=== PATIENT | female | born 1955 | race Two or more races ===

== ENCOUNTER 2018-01-08 07:06 | Day surgery (SDC) | payer OTHER ==
[2018-01-07] MEDS: LACTATED RINGER'S 1,000 ML IV (16:33)
[~2018-01-08 07:06] MED LIST: LIDOCAINE 2% (SDV) 5 ML INJ; LIDOCAINE 3.5% GEL TUBE OPER; PROPOFOL 200 MG INJ
[2018-01-08] MEDS ORDERED: EPINEPHrine 1 MG INJ (07:15)
[2018-01-08] MEDS: MOXIFLOXACIN 0.5% 3 ML OPH OPER (08:29)
[2018-01-08] MEDS: LIDOCAINE 3.5% GEL TUBE OPER (08:29)
[2018-01-08] MEDS: TROPICAMIDE 1% 3 ML OPH OPER (08:29)
[2018-01-08] MEDS: CYCLOPENTOLATE 2% 2 ML OPH OPER (08:29)
[2018-01-08] MEDS ORDERED: ALBUTEROL 0.083% (NEB) 2.5 MG/3 ML AMP HHN ×2 (08:30→11:30)
[2018-01-08] MEDS: PHENYLephrine 10% 5 ML OPH OPER (08:30)
[2018-01-08] MEDS ORDERED: LABETALOL HCL 20MG INJ IV ×2 (08:30→11:30)
[2018-01-08] MEDS ORDERED: ONDANSETRON 4 MG INJ IV ×2 (08:30→11:30)
[2018-01-08] MEDS ORDERED: ACETAMINOPHEN 500 MG TAB PO (08:30)
[2018-01-08] MEDS ORDERED: hydrALAzine 20 MG INJ IV ×2 (08:30→11:30)
[2018-01-08] MEDS ORDERED: ACETAMINOPHEN 325 MG TAB PO (08:30)
[2018-01-08] MEDS: TETRACAINE 0.5% 4 ML OPH OPER (08:30)
[2018-01-08] MEDS: BROMFENAC SODIUM 1.7 ML OPH DROP OPER (08:31)
[2018-01-08] MEDS ORDERED: LIDOCAINE 1%/EPI 30 ML INJ (09:16)
[2018-01-08] MEDS ORDERED: TETRACAINE 0.5% 4 ML OPH (09:17)
[2018-01-08] MEDS ORDERED: TOBRAMYCIN/DEXAMETH 3.5 GM OPH OINT (09:17)
[2018-01-08] MEDS ORDERED: DEXAMETHASONE 4 MG/ML 1 ML INJ (09:18)
[2018-01-08] MEDS ORDERED: GENTAMICIN 80 MG INJ (09:18)
[2018-01-08] MEDS ORDERED: MIDAZOLAM 1 MG/ML 2 ML INJ (09:44)
[2018-01-08] MEDS ORDERED: CEFAZOLIN 1 GM INJ (09:49)
[2018-01-08] MEDS ORDERED: TRYPAN BLUE 0.5 ML SYG IO (09:49)
[2018-01-08] MEDS: LIDOCAINE 1%/EPI 30 ML INJ INJ (10:05)
[2018-01-08] MEDS ORDERED: FENTAnyl 50 MCG/ML VIAL (10:09)
[2018-01-08] MEDS: DIPHENHYDRAMINE 50 MG INJ IV (11:25)
[2018-01-08] MEDS ORDERED: OXYCODONE/ACETAMINOPHEN (5/325) TAB PO (11:30)
[2018-01-08] MEDS ORDERED: EPHEDrine SULFATE 50 MG/5 ML SYG IV (11:30)
[2018-01-08] MEDS ORDERED: DIPHENHYDRAMINE 50 MG INJ IV (11:30)
[2018-01-08] MEDS ORDERED: FENTAnyl 50 MCG/ML VIAL IV (11:30)
[2018-01-08] MEDS ORDERED: ATROPINE 1 MG/10 ML SYRINGE IV (11:30)
[2018-01-08] MEDS ORDERED: morphine (1 MG/ML) 10ML SYRINGE IV (11:30)
[2018-01-08] MEDS ORDERED: HYDROmorphONE 1 MG/5 ML IV SYRINGE IV (11:40)
[2018-01-08] MEDS: HYDROmorphONE 1 MG/5 ML IV SYRINGE IV (11:42)
[2018-01-08] MEDS: OXYCODONE/ACETAMINOPHEN (5/325) TAB PO (12:22)
[2018-01-08] MEDS: ACETAZOLAMIDE 250 MG TAB PO (13:03)
== END 2018-01-08 13:22 | disposition home or self-care (01) ==
LOC: SDS 07:06
DX: H25.22 Age-related cataract, morgagnian type, left eye (principal); E78.5 Hyperlipidemia, unspecified; E03.9 Hypothyroidism, unspecified; I10 Essential (primary) hypertension
CPT/HCPCS: 66984

== ENCOUNTER 2018-02-24 10:24 | Day surgery (SDC) | payer OTHER ==
[~2018-02-24 10:24] MED LIST changes: +DEXAMETHASONE 4 MG/ML 5 ML INJ; +GLYCOPYRROLATE 0.4 MG INJ; -LIDOCAINE 2% (SDV) 5 ML INJ; -LIDOCAINE 3.5% GEL TUBE OPER; +NEOSTIGMINE 3 MG/3 ML SYRINGE; +SEVOFLURANE 15 MIN
[2018-02-24] MEDS: BROMFENAC SODIUM 1.7 ML OPH DROP OPER (11:17)
[2018-02-24] MEDS: CYCLOPENTOLATE 2% 2 ML OPH OPER (11:18)
[2018-02-24] MEDS: MOXIFLOXACIN 0.5% 3 ML OPH OPER (11:18)
[2018-02-24] MEDS: LIDOCAINE 3.5% GEL TUBE OPER (11:19)
[2018-02-24] MEDS: TETRACAINE 0.5% 4 ML OPH OPER (11:19)
[2018-02-24 11:47] LABS: ADD MAN DIFF? NO
[2018-02-24] MEDS ORDERED: FENTAnyl 50 MCG/ML VIAL (11:50)
[2018-02-24] MEDS ORDERED: MIDAZOLAM 1 MG/ML 2 ML INJ (11:50)
[2018-02-24 11:57] LABS: BASOPHIL # 0.1 10^3/ul (0.0-0.1); BASOPHILS % 0.7 % (0.0-2.0); EOSINOPHILS # 0.1 10^3/ul (0.0-0.5); EOSINOPHILS % 1.7 % (0.0-7.0); HEMATOCRIT 35.3 % (37.0-47.0); LYMPHOCYTES # 2.9 10^3/ul (0.8-2.9); LYMPHOCYTES % 41.3 % (15.0-51.0); MEAN CORPUSCULAR HEMOGLOBIN 29.8 pg (29.0-33.0); MEAN CORPUSCULAR VOLUME 87.6 fl (82.0-101.0); MEAN PLATELET VOLUME 10.2 fl (7.4-10.4); MONOCYTE # 0.5 10^3/ul (0.3-0.9); MONOCYTES % 7.3 % (0.0-11.0); NEUTROPHIL # 3.4 10^3/ul (1.6-7.5); NEUTROPHILS % 48.7 % (39.0-77.0); PLATELET COUNT 292 10^3/UL (140-415); RED BLOOD COUNT 4.03 10^6/ul (4.20-5.40); RED CELL DISTRIBUTION WIDTH 12.5 % (11.5-14.5)
[2018-02-24 12:17] LABS: INR 0.99; PROTIME 13.2 Sec (11.9-14.9)
[2018-02-24 12:18] LABS: PARTIAL THROMBOPLASTIN TIME 30.2 Sec (23.0-35.0)
[2018-02-24 12:21] LABS: ANION GAP 10 (5-13); BLOOD UREA NITROGEN 15 mg/dl (7-20); CALCIUM 9.5 mg/dl (8.4-10.2); CARBON DIOXIDE 21 mmol/L (21-31); CHLORIDE 113 mmol/L (97-110); CREATININE 0.85 mg/dl (0.44-1.00); Estimated GFR > 60 mL/min (>60); GLUCOSE 97 mg/dl (70-220); POTASSIUM 3.7 mmol/L (3.5-5.1); SODIUM 144 mmol/L (135-144)
[2018-02-24] MEDS ORDERED: CEFAZOLIN 1 GM INJ (13:06)
[2018-02-24] MEDS ORDERED: ONDANSETRON 4 MG INJ (13:06)
[2018-02-24] MEDS ORDERED: SUCCINYLCHOLINE CHLORIDE 100 MG/5 ML SYG IV (13:06)
[2018-02-24] MEDS: TOBRAMYCIN 0.3% 3.5 GM OPH OINT LEFT EYE (13:54)
[2018-02-24] MEDS ORDERED: LABETALOL HCL 20MG INJ IV (14:30)
[2018-02-24] MEDS ORDERED: HYDROmorphONE 1 MG/5 ML IV SYRINGE IV ×3 (14:30)
[2018-02-24] MEDS ORDERED: FENTAnyl 50 MCG/ML VIAL IV ×3 (14:30)
[2018-02-24] MEDS ORDERED: EPHEDrine SULFATE 50 MG/5 ML SYG IV (14:30)
[2018-02-24] MEDS ORDERED: DIPHENHYDRAMINE 50 MG INJ IV (14:30)
[2018-02-24] MEDS ORDERED: ALBUTEROL 0.083% (NEB) 2.5 MG/3 ML AMP HHN (14:30)
[2018-02-24] MEDS ORDERED: LEVALBUTEROL (NEB) 0.63 MG/3 ML AMP HHN (14:30)
[2018-02-24] MEDS ORDERED: hydrALAzine 20 MG INJ IV (14:30)
[2018-02-24] MEDS: MEPERIDINE 25 MG INJ IV (14:45)
[2018-02-24] MEDS: ONDANSETRON 4 MG INJ IV (14:46)
[2018-02-24] MEDS ORDERED: ROCURONIUM 50 MG INJ (15:28)
== END 2018-02-24 16:16 | disposition home or self-care (01) ==
LOC: SDS 10:24
DX: H16.042 Marginal corneal ulcer, left eye (principal); I10 Essential (primary) hypertension; E78.5 Hyperlipidemia, unspecified; E11.9 Type 2 diabetes mellitus without complications
CPT/HCPCS: 65435; 80048; 85025; 85610; 85730; 87070; 87102